=== PATIENT | female | born 1960 | race Caucasian/White ===

== ENCOUNTER 2018-09-18 22:46 | Emergency (ER) | payer SELFPAY ==
[2018-09-18 22:48] VITALS: BP 138/87; PULSE 63; RESP 16; TEMP 36.8; O2SAT 97; BMI 24.7
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
[2018-09-18 23:49] LABS: Absolute Lymphocyte Count 2.28 X10^3/ul (0.83-4.51); Absolute Neutrophil Count 1.9 X10^3/uL (2.0-7.7); Eosinophils% 5.9 % (0-5); Hemoglobin 15.2 g/dl (12.0-15.0); Lymphocyte # 2.28 X10^3/ul (4.0); Lymphocyte % 45.1 % (19-41); Mean Corp Hgb Conc 34.5 g/gl (32-36); Mean Corpuscular Volume 95.7 fL (81-99); Mean Platelet Vol. 10.6 fl (6.2-12.0); Monocyte# 0.49 X10^3/uL; Monocyte% 9.7 % (0-10); Neutrophil # 1.88 X10^3/uL (2.7-7.7); Neutrophil % 37.1 % (47-70); Platelet Count 294 K/mm3 (150-450); RBC Distribution Width CV 12.1 % (11.6-14.6); RBC Distribution Width SD 40.9 fl (35.1-43.9); White Blood Count 5.1 K/mm3 (4.4-11.0)
[2018-09-18 23:59] LABS: Anion Gap 9 (5-15); BUN 11 mg/dL (7-18); Calcium,Total 8.8 mg/dL (8.5-10.1); Chloride 105 mmol/L (98-107); Creatinine, Serum 0.73 mg/dL (0.55-1.02); EST Glomerular Filtration Rate 87 mL/min (>60); Est Glom Filt Rate - Afr Amer 105 mL/min (>60); Estimated Creatinine Clearance 77.43 ml/min; Glucose 121 mg/dL (74-106); Potassium 3.5 mmol/L (3.5-5.1); Sodium Level 139 mmol/L (136-145)
[2018-09-19] VITALS (15 sets, daily range): BP systolic 99–138; BP diastolic 60–80; PULSE 53–81; RESP 12–18; TEMP 36.4; O2SAT 97–100
[2018-09-19] LABS: POSITIVE COUNT NO; POSITIVE DIFFERENTIAL NO; POSITIVE MORPHOLOGY NO
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
--- NOTE | 2018-09-19 00:29 | ED.RN ---
PT CONTINUES TO STATE SHE IS LEAVING. SECURITY AND HRO AT BEDSIDE. DR. MADRID AT BEDSIDE. ANXIETY MEDICATION ORDERED. LEATHER RESTRAINTS ORDERED.
--- NOTE | 2018-09-19 00:33 | ED.RN ---
PT HAS REFUSED ORAL ATIVAN FOR ANXIETY. GEODON IM ORDERED FOR AGITATION AND ANXIETY.
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
[2018-09-19] MEDS: Ziprasidone IM 20 MG/ML VIAL IM (00:46)
--- NOTE | 2018-09-19 00:48 | ED.RN ---
PT OUT OF BED COMING TO DOORWAY CLAIMING THAT SHE WANTS TO LEAVE, SHE IS READY TO BE DISCHARGED. PT ASSISTED BACK TO BED. DR. MADRID AT BEDSIDE TO TALK WITH PATIENT. PT STEALS PEN OUT OF JULIUS FIELDS'S POCKET. PT INCREASINGLY AGITATED. PD AND SECURITY AT BEDSIDE. PT OUT OF BED REFUSING TO STAY IN ROOM. PT THREATENING TO HIT AND SPIT ON STAFF. PT EDUCATED THAT SHE IS INTOXICATED AND CANNOT SEE CRISIS COUNSELOR UNTIL SHE IS LEGALLY SOBER. PT SCREAMING AND SHOUTING OBSCENITIES AT STAFF. DE-ESCALATION TACTICS UNSUCCESSFUL. PT RESTRAINED, SEE RESTRAINT DOCUMENTATION. SITTER INITIATED PER DR. MADRID VERBAL ORDER.
[2018-09-19 01:02] LABS: Amphetamine Urine VISTA NEGATIVE (<1000 ng/mL); Barbiturate Urine VISTA NEGATIVE (< 200 ng/mL); Benzodiazepine Urine VISTA NEGATIVE (< 200 ng/mL); Cocaine Urine VISTA NEGATIVE (< 300 ng/mL); Ecstacy Urine VISTA NEGATIVE (< 500 ng/mL); Methadone Urine VISTA NEGATIVE (< 300 ng/mL); PCP Urine VISTA NEGATIVE (< 25 ng/mL); THC Urine VISTA NEGATIVE (< 50 ng/mL); Vista UDS pH Range 6
--- NOTE | 2018-09-19 01:38 | ED.RN ---
PT LEFT WRIST RESTRAINT REMOVED AND, RIGHT ANKLE RESTRAINT REMOVED. WILL CONTINUE TO MONITOR.
--- NOTE | 2018-09-19 02:11 | ED.RN ---
0145 pt removed from restraints.
[2018-09-19] MEDS: amLODIPine 5 MG Tablet PO (08:14)
[2018-09-19] MEDS: hydroCHLOROthiazide 25 MG Tablet PO (08:14)
[2018-09-19] MEDS: Metoprolol Tartrate 25 MG Tablet 50 MG PO (08:14)
[2018-09-19] MEDS: Citalopram 10 MG Tablet 20 MG PO (08:15)
[2018-09-19] MEDS: Gabapentin 600 MG Tablet 300 MG PO (08:15)
[2018-09-19] MEDS: Pantoprazole Sodium 40 MG Tablet PO (08:18)
--- NOTE | 2018-09-19 09:06 | EKG12_ITS ---
Test Reason : PLACEMENT Blood Pressure : / mmHG Vent. Rate : 049 BPM Atrial Rate : 049 BPM P-R Int : 146 ms QRS Dur : 086 ms QT Int : 488 ms P-R-T Axes : 029 -27 027 degrees QTc Int : 440 ms Sinus bradycardia Nonspecific ST abnormality Abnormal ECG Confirmed by BRIDGET PEREZ MD ([id number]), international editorial producer NICHOLAS BARRY ([id number]) on 09/22/2018 1:35:36 PM Referred By: ERIN Confirmed By:BRIDGET PEREZ MD
--- NOTE | 2018-09-19 09:23 | RAD_ITS ---
STUDY: X-RAY - SOFT TISSUE NECK REASON FOR EXAM: Female, 58 years old. Suicidal. Laceration to left side of neck. TECHNIQUE: 2 view(s) of the neck were obtained. COMPARISON: None. FINDINGS: Normal visualized nasopharynx, oropharynx, hypopharynx. Normal epiglottis. Normal visualized subglottic tracheal air column. Normal prevertebral soft tissue structures. Degenerative disc space height narrowing with anterior marginal spurs at C5-C6 and C6-C7 disc space levels. No acute osseous abnormality of the cervical spine. The soft tissue structures are unremarkable. RAD/Neck for Soft Tissue IMPRESSION: Normal x-ray soft tissue neck. Electronically Signed: Volodymyr Bravo MD at 9:43 EST , Service support ,
[2018-09-19 09:46] LABS: AST(SGOT) 37 U/L (15-37); Alanine Aminotransfer ALT/SGPT 41 U/L (13-56); Albumin, Serum 3.9 g/dL (3.2-5.0); Alkaline Phosphatase 127 U/L (45-117); Bilirubin, Direct 0.12 mg/dL (0.00-0.30); Protein, Total 7.9 g/dL (6.4-8.2)
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
--- NOTE | 2018-09-19 13:56 | ED.RN ---
pt results faxed to [facility] again.
--- NOTE | 2018-09-19 17:20 | ED.RN ---
PT HAS A SMALL RED SAVI TO LEFT BASE OF NECK, INTACT. BRUISING TO BILAT WRISTS AND UNDER UPPER RIGHT ARM.
--- NOTE | 2018-09-19 17:37 | ED.RN ---
PT'S BELONGINGS SENT HOME WITH SPOUSE.
== END 2018-09-19 17:37 ==
PROVIDERS: Emergency Provider Emergency Medicine; Family Provider Family Medicine; PCP Family Medicine
DX: F10.129 Alcohol abuse with intoxication, unspecified (principal); Y90.6 Blood alcohol level of 120-199 mg/100 ml; J44.9 Chronic obstructive pulmonary disease, unspecified; I10 Essential (primary) hypertension; Z87.891 Personal history of nicotine dependence; Z79.899 Other long term (current) drug therapy
CPT/HCPCS: 36415; 70360; 80048; 80076; 80307; 80320; 85025; 93005; 96372; 99285; G0480; J3486

== ENCOUNTER 2021-06-24 08:54 | Emergency (ER) | payer BC, SELFPAY ==
[2021-06-24 08:54] VITALS: BP 165/116; PULSE 73; RESP 18; TEMP 36.6; O2SAT 100; BMI 26.2
--- NOTE | 2021-06-24 08:55 | EKG12_ITS ---
Test Reason : CP Blood Pressure : / mmHG Vent. Rate : 064 BPM Atrial Rate : 064 BPM P-R Int : 140 ms QRS Dur : 076 ms QT Int : 446 ms P-R-T Axes : 044 -34 011 degrees QTc Int : 460 ms Normal sinus rhythm Left axis deviation Low voltage QRS (Limb Leads) Nonspecific ST abnormality Abnormal ECG Confirmed by RANJANA FIELDS, PRISCILLA ([id number]), editorial specialist DA VILLANUEVA ([id number]) on 06/26/2021 9:08:09 AM Referred By: ELLA Confirmed By:PRISCILLA CHILEL MD
[2021-06-24 09:17] VITALS: BP 166/148; PULSE 66; RESP 13; O2SAT 100
--- NOTE | 2021-06-24 09:19 | US_ITS ---
STUDY: ABDOMINAL ULTRASOUND - RIGHT UPPER QUADRANT REASON FOR VISIT: Female, 61 years old right upper quadrant pain. TECHNIQUE: Ultrasound evaluation of the right upper quadrant was performed with real-time and static castaneda-scale imaging. TECHNICAL QUALITY: Adequate. COMPARISON: None. FINDINGS: Liver: The liver measures 15.3 cm. There is increased echogenicity consistent with fatty infiltration. The bile ducts are within normal limits. There is hepatic color flow. The direction of portal flow is hepatopetal. There is no demonstrated mass lesion. Gallbladder: Normal distended gallbladder. The gallbladder wall measures 1.5 mm. There is a negative sonographic Patel''s sign. There is no pericholecystic fluid. There are no gallstones. Common Bile Duct (C.B.D.): The common bile duct measures 2.9 mm. Pancreas: Normal size of the head, body and tail of the pancreas. There is normal echogenicity of the pancreas. There is no demonstrated pancreatic mass or cyst. Right Kidney: Normal size of the right kidney. The right kidney measures 9.4 cm x 5.2 cm x 3.9 cm. Normal renal cortex. The right cortex measures 1.2 cm. There is no demonstrated renal mass or cyst. There is no right hydronephrosis. US/Gallbladder IMPRESSION: Fatty infiltration of the liver. Electronically Signed: Giorgio Salinas MD at 10:36 EST , Service support ,
--- NOTE | 2021-06-24 09:20 | EDS_ITS ---
HPI HPI - GI History of Present Illness Chief Complaint: Chest Pain Narrative Narrative: 61-year-old female who presents with right upper quadrant abdominal pain since Thursday. Her symptoms began 3 days ago, she states that she has a dull achy pain in the right upper quadrant of her abdomen which sometimes turns sharp and stabbing. She has decreased appetite. She had normal bowel movement yesterday, but states she always has constipation. She is nauseated but states that she is unable to vomit. She denies any fevers but states she has had some chills. There are no true exacerbating or alleviating factors to her right upper quadrant abdominal pain. She states that it is always been there in the right upper quadrant, and may have had small amount of chest pressure substernally, but her main complaint is that she has had this constant pain in the right upper quadrant. [facility] Medical History Anxiety Depression Hypertension Home Medications Zanaflex 4 mg PO QHS PRN PRN 12/28/15 [History Last Taken Unknown] cholecalciferol (vitamin D3) 1,000 unit PO DAILY 12/28/15 [History Last Taken Unknown] hydrochlorothiazide 25 mg PO DAILY 12/28/15 [History Last Taken Unknown] citalopram 20 mg PO DAILY 09/18/18 [History Last Taken Unknown] gabapentin [Neurontin] 300 mg PO BID 09/18/18 [History Last Taken Unknown] potassium 10 meq PO BID 09/18/18 [History Last Taken Unknown] lansoprazole [Prevacid] 30 mg PO BID PRN 06/24/21 [History Last Taken Unknown] metoprolol tartrate 25 mg PO BID 06/24/21 [History Last Taken Unknown] Allergy/AdvReac Type Severity Reaction Status Date / Time amoxicillin Allergy Itching Verified 06/24/21 08:57 acetaminophen [From Percocet] AdvReac Itching Verified 06/24/21 08:57 oxycodone HCl [From Percocet] AdvReac Itching Verified 06/24/21 08:57 Social History Smoking Status: Former smoker ROS ROS ED ROS Narrative Constitutional: No fever, positive subjective chills. HEENT: No sore throat. No neck pain. No loss of vision. No rhinorrhea. Cardiovascular: Minimal midsternal chest pain/pressure-resolved. No palpitations. No pedal edema. Respiratory: No cough, no shortness of breath. Abdominal: Right upper quadrant abdominal pain. Positive nausea. No vomiting. Chronic constipation. Genitourinary: No dysuria. No hematuria. Musculoskeletal: No myalgias. No arthralgias. Neurologic: No headaches. No dizziness. No lightheadedness. Skin: No rash. No change in color. Psychiatric: No depression. No anxiety. EXAM Physical Exam Narrative Exam Narrative: Afebrile. Vital signs noted. HEENT: Normocephalic. Atraumatic. PERRL, EOMI. Neck soft and supple. No point tenderness or step off. Cardiovascular: Regular rate and rhythm. No murmurs, rubs, or gallops appreciated. Respiratory: No tachypnea. Lungs clear to auscultation bilaterally. Gastrointestinal: Abdomen soft, nontender, with normoactive bowel sounds. No rebound or guarding. Positive tenderness to palpation right upper quadrant. Questionable Patel sign. Neurological: Awake. Alert. Nonfocal, nonlateralizing. Skin: No rash. Normal color. No pallor. Musculoskeletal: No pedal edema. Full range of motion extremities. Const Vital Signs: 06/24/21 08:54 06/24/21 09:17 Temperature 98 F Temperature Source Temporal Pulse Rate 73 66 Respiratory Rate 18 13 Respiratory Effort Normal Non-Labored Blood Pressure 165/116 H 166/148 H Blood Pressure Mean 132 154 Pulse Ox 100 100 Oxygen Delivery Method Room Air Room Air [facility] Narrative Medical decision making narrative: I do feel that her right upper quadrant pain is related more to cholecystitis/cholelithiasis. Her EKG demonstrates normal sinus rhythm at 64 bpm without ectopy or acute ST changes. There is no significant change from previous EKG dated September 19, 2018. CBC is grossly unremarkable, normal white count of 7.9, hemoglobin stable at 15.2. Sodium low at 130 with a chloride of 97. She was bolused normal saline 1 L intravenously. Creatinine slightly elevated at 1.04 which I think is nonspecific. Her troponin is negative at 9, and with constant pain all weekend, I do not feel that she needs a delta troponin. Lipase is normal at 127. Gallbladder ultrasound shows fatty infiltration of the liver, but no evidence of cholelithiasis. She may be having biliary colic. Common bile duct is not grossly enlarged. Upon repeat examination she states she is feeling improved. At this point in time, I feel she be discharged safely home with follow-up to her primary care physician. She may require outpatient HIDA scanning. She may also require referral to a surgeon versus gastroenterology. Return instructions to the emergency department were reviewed. She will start a clear liquid diet and advance as tolerated. Disposition is discharged home in stable condition. Return instructions to the emergency department were reviewed. Lab Data Attestation: I reviewed the patient's lab results. Labs: Laboratory Results - last 24 hr 06/24/21 06/24/21 09:30 09:30 WBC 7.9 RBC 4.80 Hgb 15.2 H Hct 45.4 MCV 94.6 MCH 31.7 MCHC 33.5 RDW Std Deviation 41.3 RDW Coeff of Jeannette 12.0 Plt Count 360 MPV 9.9 Immature Gran % (Auto) 0.800 Neut % (Auto) 66.8 Lymph % (Auto) 21.8 Yuba % (Auto) 8.9 Eos % (Auto) 0.9 Baso % (Auto) 0.8 Absolute Neuts (auto) 5.3 Absolute Lymphs (auto) 1.72 Nucleated RBC % 0 Sodium 130 L Potassium 4.0 Chloride 97 L Carbon Dioxide 26.0 Anion Gap 7 BUN 18 Creatinine 1.04 H Estim Creat Clear Calc 52.41 Est GFR (MDRD) Af Amer 70 Est GFR (MDRD) Non-Af 58 L BUN/Creatinine Ratio 17.3 Glucose 124 H Calcium 9.6 Total Bilirubin 1.10 H AST 24 ALT 27 Alkaline Phosphatase 110 Troponin I High Sens 9 Total Protein 7.6 Albumin 3.6 Globulin 4.0 Albumin/Globulin Ratio 0.9 Lipase 127 Radiography Diagnostic Testing: Clinical Impression(s) from Imaging Studies Gallbladder Ultrasound 06/24/21 09:19 IMPRESSION: Fatty infiltration of the liver. Electronically Signed: Giorgio Salinas MD at 10:36 EST , Service support , Discharge Plan Triage Chief Complaint: Chest Pain ED Provider: Volodymyr Fair Dx/Rx/DC Orders Clinical Impression: Abdominal pain, acute, right upper quadrant Instructions: ED Abdominal Pain Unkn Cause Fem Prescriptions: No Action hydrochlorothiazide 25 MG tablet 25 mg PO DAILY RF: 0 cholecalciferol (vitamin D3) 5,000 UNIT capsule 1,000 unit PO DAILY RF: 0 Zanaflex 4 mg PO QHS PRN PRN (Reason: Muscle Spasm) RF: 0 potassium 99 MG tablet 10 meq PO BID RF: 0 citalopram 20 MG tablet 20 mg PO DAILY RF: 0 gabapentin [Neurontin] 300 MG capsule 300 mg PO BID RF: 0 metoprolol tartrate 25 mg tablet 25 mg PO BID RF: 0 lansoprazole [Prevacid] 30 MG capsule,delayed release(DR/EC) 30 mg PO BID PRN (Reason: Acid Reflux) RF: 0 Primary Care Provider: Theron Chavez Referrals: Theron Chavez MD [Primary Care Provider] - 06/26/21 Disposition Disposition: Home, Self Care
[2021-06-24] MEDS: Ondansetron 4 MG/2 ML Vial IV (09:31)
[2021-06-24] MEDS: 0.9% Normal Saline 1,000 ML 1000 ML IV (09:31)
[2021-06-24] MEDS: Morphine 4 MG/ML Syringe IV (09:33)
[2021-06-24 09:36] LABS: Absolute Lymphocyte Count 1.72 X10^3/uL (0.83-4.51); Absolute Neutrophil Count 5.3 X10^3/uL (2.0-7.7); Basophil# 0.06 X10^3/uL; Basophil% 0.8 % (0-1); Eosinophil# 0.07 X10^3/uL; Eosinophils% 0.9 % (0-5); Hematocrit 45.4 % (37-47); Hemoglobin 15.2 g/dL (12.0-15.0); Lymphocyte # 1.72 X10^3/ul (0.83-4.51); Lymphocyte % 21.8 % (19-41); Mean Corp Hgb Conc 33.5 g/dL (32-36); Mean Corpuscular Hgb 31.7 pg (27.0-32.0); Mean Corpuscular Volume 94.6 fL (81-99); Mean Platelet Vol. 9.9 fl (6.2-12.0); Monocyte% 8.9 % (0-10); NRBC Flagged by Analyzer 0 % (0-5); Neutrophil # 5.29 X10^3/uL (2.7-7.7); Neutrophil % 66.8 % (47-70); Platelet Count 360 K/mm3 (150-450); RBC Distribution Width SD 41.3 fl (35.1-43.9); White Blood Count 7.9 K/mm3 (4.4-11.0)
[2021-06-24 09:53] LABS: ALB/GLOB Ratio 0.9 RATIO (0.9-2.4); AST(SGOT) 24 U/L (15-37); Alanine Aminotransfer ALT/SGPT 27 U/L (13-56); Albumin, Serum 3.6 g/dL (3.2-5.0); Alkaline Phosphatase 110 U/L (45-117); Anion Gap 7 (5-15); BUN 18 mg/dL (7-18); BUN/Creat Ratio 17.3 RATIO (10-20); Calcium,Total 9.6 mg/dL (8.5-10.1); Chloride 97 mmol/L (98-107); Creatinine, Serum 1.04 mg/dL (0.55-1.02); EST Glomerular Filtration Rate 58 mL/min (>60); Est Glom Filt Rate - Afr Amer 70 mL/min (>60); Estimated Creatinine Clearance 52.41 ml/min; Glucose 124 mg/dL (74-106); Lipase 127 U/L (73-393); Protein, Total 7.6 g/dL (6.4-8.2); Sodium Level 130 mmol/L (136-145); Troponin-I HS 9 pg/mL (3.0-54.0)
[2021-06-24 11:41] VITALS: BP 166/79; PULSE 53; RESP 11; O2SAT 98
== END 2021-06-24 11:46 | disposition home or self-care (01) ==
PROVIDERS: Emergency Provider Emergency Medicine; PCP Family Medicine
DX: R10.11 Right upper quadrant pain (principal); K76.0 Fatty (change of) liver, not elsewhere classified; F41.9 Anxiety disorder, unspecified; F32.A Depression, unspecified; I10 Essential (primary) hypertension; Z79.899 Other long term (current) drug therapy; Z87.891 Personal history of nicotine dependence
CPT/HCPCS: 76705; 80053; 83690; 84484; 85025; 93005; 96361; 96374; 96375; 99284; J7030; A4216; J2405